=== PATIENT | male | born 1995 | race Caucasian/White ===

== ENCOUNTER 2018-11-24 07:01 | Emergency (ER) | payer BC ==
[~2018-11-24] VITALS: Ht 182.9 cm; Wt 74.8 kg
[~2018-11-24 07:01] MED LIST: LEVE500T99 PO
--- OUTSIDE RECORDS SUMMARY | 2018-11-24 07:06 | XMS REPORT ---
Author Author NEDRABROOKE Organization [facility] Address [address] [place] [address] Care Team Providers Care Tape Recorder Repairer Name Role Phone BROOKE SNEED Unavailable PROBLEMS Type Condition ICD9-CM Code NQU63-FW Code Onset Dates Condition Status SNOMED Code Problem Mood disorder F39 Active 71896629 Problem Benzodiazepine abuse F13.10 Active 026106888 Assessment Adjustment disorder with mixed anxiety and depressed mood F43.23 Apr, Active 99388394 Assessment Substance abuse F19.10 Apr, Active [id number] ALLERGIES Substance Reaction Event Type Date Status N.K.D.A. Unknown Non Drug Allergy Apr, Unknown SOCIAL HISTORY No smoking Hx information available PLAN OF CARE VITAL SIGNS Height 73.5 in 2016-04-19 Weight 150.3 lbs 2016-04-19 Heart Rate 92 bpm 2016-04-19 Respiratory Rate 20 2016-04-19 BMI 19.56 kg/m2 2016-04-19 Blood pressure systolic 140 mmHg 2016-04-19 Blood pressure diastolic 92 mmHg 2016-04-19 MEDICATIONS Medication Instructions Dosage Frequency Start Date End Date Duration Status Zyrtec Allergy 10 MG Orally Once a day 1 tablet 24h Mar, Apr, 30 day(s) Active Venlafaxine HCl 37.5 MG Orally Twice a day at noon and at 5pm 1 tablet with food Mar, 30 days Active Trazodone HCl 50 MG Orally Once a day 1 tablet at bedtime for sleep 24h Apr, 30 day(s) Active RESULTS No Results PROCEDURES Procedure Date Ordered Related Diagnosis Body Site MH Office Visit, Est Pt., Level 4 Apr 19, 2016 IMMUNIZATIONS No Known Immunizations
[2018-11-24] MEDS ORDERED: LACTATED RINGERS 1,000 ML IV ONE (07:15)
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
[2018-11-24 07:29] LABS: BASOPHILS % (AUTO) 1 % (0-10); EOSINOPHILS # (AUTO) 0.3 10^3/uL (0.0-0.3); EOSINOPHILS % (AUTO) 5 % (0-10); HEMATOCRIT 49 % (40-54); HEMOGLOBIN 16.3 G/DL (13.3-17.7); LYMPHOCYTES # (AUTO) 1.2 X 10^3 (1.0-4.0); LYMPHOCYTES % (AUTO) 25 % (12-44); MEAN CORPUSCULAR HEMOGLOBIN 31 PG (25-34); MEAN CORPUSCULAR HGB CONC 33 G/DL (32-36); MEAN CORPUSCULAR VOLUME 94 FL (80-99); MEAN PLATELET VOLUME 10.1 FL (7.4-10.4); MONOCYTES # (AUTO) 0.6 X 10^3 (0.0-1.0); MONOCYTES % (AUTO) 13 % (0-12); NEUTROPHILS # (AUTO) 2.7 X 10^3 (1.8-7.8); NEUTROPHILS % (AUTO) 55 % (42-75); PLATELET COUNT 159 10^3/uL (130-400); WHITE BLOOD COUNT 4.8 10^3/uL (4.3-11.0)
[2018-11-24 07:54] LABS: ALANINE AMINOTRANSFERASE 15 U/L (0-55); ALBUMIN 4.1 GM/DL (3.2-4.5); ALKALINE PHOSPHATASE 69 U/L (40-136); BILIRUBIN,TOTAL 0.6 MG/DL (0.1-1.0); BUN/CREATININE RATIO 13; CALCIUM 9.4 MG/DL (8.5-10.1); CARBON DIOXIDE 27 MMOL/L (21-32); CHLORIDE 104 MMOL/L (98-107); CREATININE SERUM 0.86 MG/DL (0.60-1.30); GFR ESTIMATED > 60; GLUCOSE 95 MG/DL (70-105); MAGNESIUM 2.1 MG/DL (1.8-2.4); POTASSIUM 3.9 MMOL/L (3.6-5.0); SODIUM 140 MMOL/L (135-145); TOTAL PROTEIN 6.7 GM/DL (6.4-8.2)
--- NOTE | 2018-11-24 07:55 | Diagnostic Imaging Report ---
PROCEDURE: CT head without contrast. TECHNIQUE: Multiple contiguous axial images were obtained through the brain without the use of intravenous contrast. Auto Exposure Controls were utilized during the CT exam to meet ALARA standards for radiation dose reduction. INDICATION: Weakness, confusion, history of seizure. The study compared 03/15/2016 FINDINGS: There is no hemorrhage, hydrocephalus, edema, mass, mass effect or evidence for elevated pressures. The basilar cisterns are patent. There is no sulcal effacement. The orbits, sinuses and calvarium are within normal limits. IMPRESSION: Unremarkable CT head. Dictated by: Dictated on workstation # [id number]
[2018-11-24 07:58] LABS: ACETAMINOPHEN < 10 UG/ML (10-30)
--- NOTE | 2018-11-24 08:00 | Diagnostic Imaging Report ---
Patient History: Fatigue, joint and muscle pain, confusion, altered mental status, mood swings. Technique: Two views of the chest Comparison: None FINDINGS: The lung volumes are normal. No focal consolidation is seen. No large pleural effusion or pneumothorax is seen. The cardiomediastinal silhouette is normal in size and contour. No acute osseous abnormality is seen. IMPRESSION: No acute pulmonary abnormality seen. Dictated by: Dictated on workstation # [id number]
[2018-11-24 08:14] LABS: TSH (THYROID ANALYZER) 1.62 UIU/ML (0.35-4.94)
[2018-11-24 09:00] LABS: BILIRUBIN,URINE NEGATIVE (NEGATIVE); CLARITY,URINE CLEAR; COLOR,URINE YELLOW; GLUCOSE, URINE (UA) NEGATIVE (NEGATIVE); KETONES,URINE NEGATIVE (NEGATIVE); LEUKOCYTE ESTERASE ,URINE NEGATIVE (NEGATIVE); NITRITE,URINE NEGATIVE (NEGATIVE); PH,URINE 7 (5-9); PROTEIN,URINE NEGATIVE (NEGATIVE); UROBILINOGEN,URINE NORMAL (NORMAL)
[2018-11-24 09:18] LABS: BACTERIA,URINE NEGATIVE /HPF; SQUAMOUS EPITHELIAL CELL,UR RARE /HPF
[2018-11-24 09:19] LABS: AMPHETAMINE SCREEN, URINE NEGATIVE (NEGATIVE); BARBITURATE SCREEN URINE NEGATIVE (NEGATIVE); BENZODIAZEPINES SCREEN URINE NEGATIVE (NEGATIVE); CANNABINOID SCREEN, URINE POSITIVE (NEGATIVE); COCAINE SCREEN URINE NEGATIVE (NEGATIVE); METHADONE STAT NEGATIVE (NEGATIVE); METHAMPHETAMINE SCREEN URINE S NEGATIVE (NEGATIVE); OPIATE SCREEN URINE NEGATIVE (NEGATIVE); OXYCODONE STAT NEGATIVE (NEGATIVE); PROPOXYPHENE STAT NEGATIVE (NEGATIVE); TRICYCLIC ANTIDEPRESSANTS SCRE NEGATIVE (NEGATIVE)
[2018-11-24 09:45] VITALS: BP 123/79
== END 2018-11-24 09:45 | disposition home or self-care (01) ==
LOC: EDUNIT# 07:01 → ER 07:02
DX: F12.10 Cannabis abuse, uncomplicated (principal); F15.10 Other stimulant abuse, uncomplicated; F11.10 Opioid abuse, uncomplicated; R53.81 Other malaise; G40.909 Epilepsy, unspecified, not intractable, without status epilepticus; F31.9 Bipolar disorder, unspecified; F43.10 Post-traumatic stress disorder, unspecified; F41.9 Anxiety disorder, unspecified; F17.210 Nicotine dependence, cigarettes, uncomplicated; Z90.49 Acquired absence of other specified parts of digestive tract
CPT/HCPCS: 36415; 70450; 71046; 80053; 80306; 80320; 80329; 81000; 83735; 84443; 85025; 93005; 96360

== ENCOUNTER 2019-12-13 03:48 | Emergency (ER) | payer BC ==
[~2019-12-13] VITALS: Ht 182 cm; Wt 75.0 kg
--- NOTE | 2019-12-13 03:55 | NUR ---
C-COLLAR APPLIED BY DR MCKEON.
[2019-12-13] MEDS ORDERED: TETANUS,DIPTH,PERTUSS P/F (BOOSTRIX) 0.5 ML VIAL IM ONE (04:00)
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
[2019-12-13 04:26] LABS: BASOPHILS % (AUTO) 1 % (0-10); EOSINOPHILS # (AUTO) 0.3 10^3/uL (0.0-0.3); EOSINOPHILS % (AUTO) 4 % (0-10); HEMATOCRIT 45 % (40-54); HEMOGLOBIN 15.7 G/DL (13.3-17.7); LYMPHOCYTES # (AUTO) 1.8 X 10^3 (1.0-4.0); LYMPHOCYTES % (AUTO) 29 % (12-44); MEAN CORPUSCULAR HEMOGLOBIN 31 PG (25-34); MEAN CORPUSCULAR HGB CONC 35 G/DL (32-36); MEAN CORPUSCULAR VOLUME 88 FL (80-99); MEAN PLATELET VOLUME 10.6 FL (7.4-10.4); MONOCYTES # (AUTO) 0.6 X 10^3 (0.0-1.0); MONOCYTES % (AUTO) 9 % (0-12); NEUTROPHILS # (AUTO) 3.7 X 10^3 (1.8-7.8); NEUTROPHILS % (AUTO) 58 % (42-75); PLATELET COUNT 201 10^3/uL (130-400); RED CELL DISTRIBUTION WIDTH 12.6 % (10.0-14.5); WHITE BLOOD COUNT 6.4 10^3/uL (4.3-11.0)
[2019-12-13 04:30] LABS: ALBUMIN 4.5 GM/DL (3.2-4.5); CHLORIDE 104 MMOL/L (98-107); POTASSIUM 3.4 MMOL/L (3.6-5.0); SODIUM 140 MMOL/L (135-145)
[2019-12-13 04:31] LABS: CALCIUM 9.7 MG/DL (8.5-10.1)
[2019-12-13 04:32] LABS: GLUCOSE 103 MG/DL (70-105)
[2019-12-13 04:33] LABS: CARBON DIOXIDE 20 MMOL/L (21-32)
[2019-12-13 04:34] LABS: BILIRUBIN,TOTAL 0.5 MG/DL (0.1-1.0)
[2019-12-13 04:36] LABS: CREATININE SERUM 1.01 MG/DL (0.60-1.30); GFR ESTIMATED > 60
[2019-12-13 04:37] LABS: BUN/CREATININE RATIO 16
[2019-12-13 04:39] LABS: ALANINE AMINOTRANSFERASE 13 U/L (0-55)
--- NOTE | 2019-12-13 04:50 | NUR ---
C-COLLAR REMOVED BY DR MCKEON.
[2019-12-13 04:51] LABS: ALKALINE PHOSPHATASE 55 U/L (40-136)
[2019-12-13 05:00] VITALS: BP 116/74
--- NOTE | 2019-12-13 06:15 | Diagnostic Imaging Report ---
PROCEDURE: CT head, face, and cervical spine without contrast. TECHNIQUE: Multiple contiguous axial images were obtained through the head, neck, and facial bones without the use of intravenous contrast. Sagittal and coronal reformations through the cervical spine and facial bones were also performed. Auto Exposure Controls were utilized during the CT exam to meet ALARA standards for radiation dose reduction. INDICATION: Trauma CT HEAD: There is no mass, shift of the midline or hemorrhage to suggest an acute intracranial abnormality. The ventricles are not abnormally dilated and stable in size when compared to the prior exam of 11/24/2018. The bone windows show no evidence for a skull fracture. There is some fluid within the maxillary antrum on the left and a small retention cyst along the anterior aspect of the right maxillary antrum. The orbits are symmetrical and within normal limits. IMPRESSION: There is no evidence for an acute intracranial abnormality. CT maxillofacial bones: There is a nondisplaced fracture of the base of the nasal plate on the right. The left nasal plate is intact. The zygomatic arches, orbital rims and mandible show no sign of an acute abnormality. There is fluid and/or mucosal thickening in the left maxillary antrum and in the ethmoid sinuses. The small retention cyst in the right maxillary antrum seen on the CT head exam is also again evident. The orbits are symmetrical and within normal limits. IMPRESSION: There is a nondisplaced fracture of the base of the nasal plate on the right. There is no acute bony abnormality noted otherwise. CT cervical spine: Reconstructed parasagittal images show the vertebral body heights and alignment to be generally within normal limits. The intervertebral disc spaces are fairly well-maintained. There is no fracture or acute bony abnormality noted. There is no sign of a high-grade central stenosis. There is no evidence of retropharyngeal edema. The thyroid gland is unremarkable. The lung apices are clear. IMPRESSION: There is no evidence for an acute bony abnormality of the cervical spine. Dictated by: Dictated on workstation # [id number]
== END 2019-12-13 05:05 | disposition home or self-care (01) ==
LOC: EDUNIT# 03:48 → ER 03:49
DX: S02.40CA Maxillary fracture, right side, initial encounter for closed fracture (principal); S01.81XA Laceration without foreign body of other part of head, initial encounter; S00.03XA Contusion of scalp, initial encounter; R45.851 Suicidal ideations; G40.909 Epilepsy, unspecified, not intractable, without status epilepticus; F19.10 Other psychoactive substance abuse, uncomplicated; F12.10 Cannabis abuse, uncomplicated; F15.10 Other stimulant abuse, uncomplicated; F11.10 Opioid abuse, uncomplicated; F13.10 Sedative, hypnotic or anxiolytic abuse, uncomplicated; R40.2142 Coma scale, eyes open, spontaneous, at arrival to emergency department; R40.2252 Coma scale, best verbal response, oriented, at arrival to emergency department; R40.2362 Coma scale, best motor response, obeys commands, at arrival to emergency department; F17.210 Nicotine dependence, cigarettes, uncomplicated; Z23 Encounter for immunization; Y00.XXXA Assault by blunt object, initial encounter
CPT/HCPCS: 70450; 70486; 72125; 80053; 85025; 99283; G0480; 36415; 80320; 90715